=== PATIENT | male | born 1965 | race Native Hawaiian/Other Pacific Islander ===

== ENCOUNTER 2020-04-03 08:37 | Outpatient (CLI) | payer OTHER | END 2020-04-03 20:15 | disposition home or self-care (01) | LOC: LAB 08:37 | DX: R05 Cough (principal); R09.81 Nasal congestion ==

== ENCOUNTER 2020-11-14 14:04 | Outpatient (CLI) | payer OTHER | END 2020-11-14 20:32 | disposition home or self-care (01) | LOC: INF 14:04 | PROVIDERS: ATTEND Internal Medicine | DX: Z23 Encounter for immunization (principal) | CPT/HCPCS: 96372 ==

== ENCOUNTER 2020-12-06 13:05 | Outpatient (CLI) | payer OTHER | END 2020-12-06 20:36 | disposition home or self-care (01) | LOC: INF 13:05 | PROVIDERS: ATTEND Internal Medicine | DX: Z23 Encounter for immunization (principal) | CPT/HCPCS: 96372 ==

== ENCOUNTER 2022-03-19 11:43 | Outpatient (CLI) | payer OTHER | END 2022-03-19 19:24 | disposition home or self-care (01) | LOC: RAD 11:43 | PROVIDERS: ATTEND Internal Medicine | DX: M17.12 Unilateral primary osteoarthritis, left knee (principal); M25.512 Pain in left shoulder; M25.511 Pain in right shoulder ==